=== PATIENT | female | born 1980 | race Caucasian/White ===

== ENCOUNTER 2016-10-06 17:01 | Emergency (ER) | payer SELFPAY ==
--- NOTE | 2016-10-06 18:32 | UC ---
Ear Complaint HPI - HPI Summary HPI Summary: right earache for 4d, getting worse. Prone to OM's, had tubes as child, continues with intermittent infections as adult. No fever. Cough, mild congestion. - History of Current Complaint Stated Complaint: EAR PAIN Time Seen by Provider: 10/06/16 18:22 Hx Obtained From: Patient Hx Last Menstrual Period: 08/24/14 Onset/Duration: Gradual Onset, Lasting Days - 4 Severity Initially: Mild Severity Currently: Moderate Aggravating Factors: Nothing Alleviating Factors: Nothing Associated Signs/Symptoms: Positive: Discharge - "yellowish", URI Symptoms. Negative: Hearing Loss, Foreign Body Sensation, Trauma to Ear, Swelling @ - Allergies/Home Medications Allergies/Adverse Reactions: Allergies Allergy/AdvReac Type Severity Reaction Status Date / Time No Known Allergies Allergy Verified 10/06/16 18:28 PMH/Surg Hx/FS Hx/Imm Hx - Additional Past Medical History Additional PMH: frequent OM's Endocrine History Of: Denies: Diabetes, Thyroid Disease Cardiovascular History Of: Denies: Cardiac Disorders, Pacemaker/ICD Respiratory History Of: Denies: Asthma Psychological History Of: Reports: Anxiety - CONTROL WITH MEDS, Depression - Surgical History Surgical History: Yes Surgery Procedure, Year, and Place: 2004 , [facility]. DILATION AND CURETTAGE, [facility]. 2005 placement of Essure in fallopian tubes (this is a contraceptive, [employer] says safe for 1.5 and 3.0T), OFFICE - Family History Known Family History: Negative: Respiratory Disease - Social History Occupation: Employed Full-time Lives: With Family Alcohol Use: Occasionally Substance Use Type: None Smoking Status (MU): Current Every Day Smoker Type: Cigarettes Amount Used/How Often: 1 pack day Have You Smoked in the Last Year: Yes Review of Systems Constitutional: Negative Skin: Negative Eyes: Negative ENT: Ear Ache, Nasal Discharge Respiratory: Cough Cardiovascular: Negative Gastrointestinal: Negative Genitourinary: Negative Motor: Negative Neurovascular: Negative Musculoskeletal: Negative Neurological: Negative Psychological: Negative All Other Systems Reviewed And Are Negative: Yes Physical Exam Triage Information Reviewed: Yes Appearance: Well-Appearing, No Pain Distress, Well-Nourished Vital Signs Reviewed: Yes ENT: Positive: Hearing grossly normal, Pharynx normal, TM bulging, TM dull, TM red - right side. Negative: Nasal congestion, Nasal drainage, Trismus, Muffled/ hoarse voice Neck exam: Normal Respiratory Exam: Normal Respiratory: Positive: Lungs clear, Normal breath sounds, No respiratory distress, No accessory muscle use Musculoskeletal Exam: Normal Neurological Exam: Normal Psychological Exam: Normal Skin Exam: Normal Ear Complaint Course/Dx - Differential Dx/Diagnosis Provider Diagnoses: right otitis media Discharge - Discharge Plan Condition: Stable Disposition: HOME Prescriptions: Cephalexin CAP* [Keflex 500 CAP*] 500 mg PO QID #40 cap Patient Education Materials: Otitis Media (ED) Referrals: ERASMO Huntley [Primary Care Provider] -
[2016-10-06 18:41] VITALS: BP 127/75
== END 2016-10-06 18:39 | disposition home or self-care (01) ==
LOC: UCCORT 17:01
DX: H66.91 Otitis media, unspecified, right ear (principal); F17.210 Nicotine dependence, cigarettes, uncomplicated
CPT/HCPCS: 99212; G0463

== ENCOUNTER 2016-11-15 16:37 | Emergency (ER) | payer MEDICAID ==
[2016-11-15 16:49] VITALS: BP 119/74
== END 2016-11-15 17:40 | disposition left against medical advice (07) ==
LOC: UCCORT 16:37
DX: J34.89 Other specified disorders of nose and nasal sinuses (principal); H92.09 Otalgia, unspecified ear; Z53.21 Procedure and treatment not carried out due to patient leaving prior to being seen by health care provider